=== PATIENT | male | born 1975 | race African-American/Black ===

== ENCOUNTER 2018-03-14 04:12 | Emergency (ER) | payer BC ==
[~2018-03-14] VITALS: Ht 180.3 cm; Wt 81.7 kg
--- NOTE | ~2018-03-14 | EKG ---
[address] [place] [address] ELECTROCARDIOGRAM REPORT Name: JOHNIE ISBELL [facility] [id number] Admission: 03/14/18 Attend Phys: Discharge: 03/14/18 Date of : 73 Report #: [id number] THIS REPORT FOR: //name// [facility] ED Test Date: 2018-03-14 Test Time: 04:20:26 Pat Name: JOHNIE ISBELL Department: Room: Gender: M Wedger Machine: NEISHA : 1975 Requested By: Evi Beasley Order Number: [id number] MD: Charli Weinstein Measurements Intervals [place] Rate: 76 P: 73 [place]: 170 QRS: -30 QRSD: 98 T: 43 QT: 386 QTc: 435 Interpretive Statements Sinus rhythm Left axis deviation RSR' in V1 or V2, right VCD Compared to ECG 05/24/2013 11:51:45 No significant change was found Electronically Signed On 03-14-2018 8:05:54 CDT by Charli Weinstein [email or web address] <ELECTRONICALLY SIGNED> By: Charli Weinstein MD, [facility] 03/14/18 0805 0420 0420 Charli Weinstein MD, [facility] /EPI
[~2018-03-14 04:12] MED LIST: BACTRIM DS TAB1 EACH PO; BENADRYL ALLERG25 MG PO; BENADRYL25 MG PO; COZAAR 50 MG TA50 M1 PO; HYDROCODON-ACE1 EACH PO; LIMBITROL DS T1 EACH PO; NORCO 5-325 TA1 EACH PO; NORVASC5 MG PO; OMEPRAZOLE; PERCOCET 10-321 EACH PO; PHENERGAN 25 MG25 M1 PO; PREVACID30 MG PO; VITAMIN D1000 UNI1 PO; ZOFRAN 4 MG ORAL4 M1 DIS
[2018-03-14] MEDS ORDERED: NORVASC5 MG PO (05:31)
[2018-03-14] MEDS ORDERED: COMPAZINE10 M2 PO (05:31)
== END 2018-03-14 05:56 | disposition home or self-care (01) ==
LOC: ER 04:12
DX: I12.9 Hypertensive chronic kidney disease with stage 1 through stage 4 chronic kidney disease, or unspecified chronic kidney disease (principal); N18.4 Chronic kidney disease, stage 4 (severe); E78.5 Hyperlipidemia, unspecified; K21.9 Gastro-esophageal reflux disease without esophagitis

== ENCOUNTER 2021-04-24 16:24 | Emergency (ER) | payer OTHER ==
[~2021-04-24] VITALS: Ht 180.3 cm; Wt 77.6 kg
[~2021-04-24 16:24] MED LIST changes: +COMPAZINE10 M2 PO
[2021-04-24 16:30] VITALS: BP 135/88
== END 2021-04-24 17:26 | disposition home or self-care (01) ==
LOC: ER 16:24
DX: T82.590A Other mechanical complication of surgically created arteriovenous fistula, initial encounter (principal); Z79.899 Other long term (current) drug therapy; E78.5 Hyperlipidemia, unspecified; K21.9 Gastro-esophageal reflux disease without esophagitis; X58.XXXA Exposure to other specified factors, initial encounter; Y93.89 Activity, other specified; Y92.89 Other specified places as the place of occurrence of the external cause; Y99.8 Other external cause status

== ENCOUNTER 2021-07-15 02:43 | Emergency (ER) | payer OTHER ==
[~2021-07-15] VITALS: Ht 180.3 cm; Wt 78.0 kg
[2021-07-15] MEDS ORDERED: ALLOPURINOL 10100 M1 PO (03:40)
[2021-07-15] MEDS ORDERED: MITIGARE0.6 MG PO (03:40)
[2021-07-15] MEDS ORDERED: APAP W/CODEINE1 TA2 PO (03:40)
[2021-07-15 04:01] VITALS: BP 149/89
== END 2021-07-15 04:01 | disposition home or self-care (01) ==
LOC: ER 02:43
DX: M10.9 Gout, unspecified (principal); I12.9 Hypertensive chronic kidney disease with stage 1 through stage 4 chronic kidney disease, or unspecified chronic kidney disease; N18.4 Chronic kidney disease, stage 4 (severe); K21.9 Gastro-esophageal reflux disease without esophagitis; E78.5 Hyperlipidemia, unspecified; Z79.899 Other long term (current) drug therapy

== ENCOUNTER 2021-08-11 08:45 | Emergency (ER) | payer OTHER ==
[~2021-08-11] VITALS: Ht 180.3 cm; Wt 78.5 kg
[~2021-08-11 08:45] MED LIST changes: +ALLOPURINOL 10100 M1 PO; +APAP W/CODEINE1 TA2 PO; +MITIGARE0.6 MG PO
[2021-08-11 10:46] LABS: CALCIUM 8.8 mg/dL (8.5-10.1); CREATININE 9.9 mg/dL (0.7-1.3)
[2021-08-11 10:47] LABS: POTASSIUM 4.3 mmol/L (3.5-5.1)
[2021-08-11 11:34] VITALS: BP 130/87
== END 2021-08-11 11:34 | disposition home or self-care (01) ==
LOC: ER 08:45
PROVIDERS: Emergency Medicine
DX: I12.0 Hypertensive chronic kidney disease with stage 5 chronic kidney disease or end stage renal disease (principal); N18.6 End stage renal disease; E78.5 Hyperlipidemia, unspecified; K21.9 Gastro-esophageal reflux disease without esophagitis; Z99.2 Dependence on renal dialysis; Z79.891 Long term (current) use of opiate analgesic; Z79.899 Other long term (current) drug therapy; Z88.5 Allergy status to narcotic agent